=== PATIENT | male | born 1945 | race Caucasian/White ===

== ENCOUNTER 2023-12-19 11:45 | Inpatient (IN) | payer MEDICARE ==
[~2023-12-19] VITALS: Ht 167.6 cm; Wt 76.5 kg
[~2023-12-19 11:45] MED LIST: ASPI1CPM21 PO; BREX1TAB PO; FOLI-130 PO; LOSA-382 PO; MELA5TAB40 PO; METF-1211 PO; MULT-248 PO; OMEG-135 PO; ROSU10TA72 PO; TAMS0.4C94 PO; THIA100T80 PO
[2023-12-19 12:34] LABS: BASOPHILS % (AUTO) 0.5 % (0.0-2.0); EOSINOPHILS % (AUTO) 2.9 % (1.0-6.0); LYMPHOCYTES # (AUTO) 1.5 K/uL (1.0-4.8); LYMPHOCYTES % (AUTO) 31.2 % (22.0-44.0); MEAN CORPUSCULAR HEMOGLOBIN 33.1 pg (26.0-34.0); MEAN CORPUSCULAR HGB CONC 33.4 G/dL (31.0-37.0); MEAN CORPUSCULAR VOLUME 99 fL (80-100); MONOCYTES # (AUTO) 0.5 K/uL (0.1-1.0); MONOCYTES % (AUTO) 9.8 % (2.0-9.0); NEUTROPHILS # (AUTO) 2.7 K/uL (1.8-7.7); NEUTROPHILS % (AUTO) 55.6 % (40.0-70.0); PLATELET COUNT (AUTO) 289 K/uL (150-450); RED BLOOD CELL COUNT(AUTO) 3.63 MIL/uL (4.50-5.90); RED CELL DISTRIBUTION WIDTH 13.9 % (11.5-14.5); WHITE BLOOD COUNT (AUTO) 4.8 K/uL (4.5-11.0)
[2023-12-19 12:46] LABS: ALCOHOL, BLOOD (SERUM) < 3 mg/dL (0-10)
[2023-12-19 12:47] LABS: ANION GAP 8 mmol/L (8-16); CALCIUM, TOTAL 9.3 mg/dL (8.8-10.5); CARBON DIOXIDE 26 mmol/L (22-29); CHLORIDE 104 mmol/L (98-107); CREATININE 0.81 mg/dL (0.60-1.30); GLOMERULAR FILTR. RATE CALC > 60 mL/min (>60); GLUCOSE,RANDOM 123 mg/dL (70-110); POTASSIUM 4.1 mmol/L (3.5-5.1); SODIUM SERUM 138 mmol/L (136-145); UREA NITROGEN, BLOOD 13 mg/dL (7-18)
[2023-12-19 12:53] LABS: ALANINE AMINOTRANSFERASE 24 U/L (12-78); ALBUMIN 3.1 g/dL (3.4-5.0); ALKALINE PHOSPHATASE 52 U/L (46-116); ASPARTATE AMINOTRANSFERASE 19 U/L (15-37); BILIRUBIN,TOTAL 0.8 mg/dL (0.1-1.0); TOTAL PROTEIN, SERUM 6.4 g/dL (6.4-8.2)
[2023-12-19 13:24] LABS: COVID AG,FIA SOURCE NASAL SWAB
[2023-12-19 13:43] LABS: SARS-COV2 (COVID) ANTIGEN,FIA Negative (Negative)
[2023-12-19] MEDS ORDERED: PROMETHAZINE HCL 25 MG TABLET PO PRN (15:00)
[2023-12-19] MEDS ORDERED: LOPERAMIDE HCL 2 MG CAPSULE PO PRN (15:00)
[2023-12-19] MEDS: DiphenhydrAMINE HCL 50 MG/ML VIAL IM ONE (15:00)
[2023-12-19] MEDS ORDERED: BREXPIPRAZOLE 1 MG TABLET PO PRN (15:00)
[2023-12-19] MEDS: HALOPERIDOL LACTATE 5 MG/ML VIAL IM ONE (15:00)
[2023-12-19] MEDS ORDERED: GuaiFENesin/D-METHORPHAN [SUGAR-FREE] 200-20MG/10 ML SYRUP UDCUP PO PRN (15:00)
[2023-12-19] MEDS: LORazepam 2 MG/ML VIAL IM ONE (15:00)
[2023-12-19] MEDS ORDERED: OLANZapine 5 MG RAPDIS TABLET PO PRN (15:00)
[2023-12-19] MEDS ORDERED: MAGNESIUM HYDROXIDE SUSPENSION 30 ML UDCUP PO PRN (15:00)
[2023-12-19] MEDS ORDERED: HydrOXYzine PAMOATE 50 MG CAPSULE PO PRN (15:00)
[2023-12-19 16:42] LABS: GLUCOMETER DEV NAME(LOC) ERT.5; GLUCOSE,POINT OF CARE 146 MG/DL (70-110)
[2023-12-19] MEDS: THIAMINE 100 MG TABLET PO SCH (17:00)
[2023-12-19] MEDS: BREXPIPRAZOLE 1 MG TABLET PO SCH (17:00)
[2023-12-19] MEDS: DIVALPROEX SODIUM 250 MG ER TABLET PO SCH (21:00)
[2023-12-19] MEDS: MELATONIN 5 MG TABLET PO SCH (21:00)
[2023-12-19 23:08] VITALS: BP 106/64; PULSE 63; RESP 18; TEMP 97.8; O2SAT 97
[2023-12-20] MEDS: MetFORMIN HCL 500 MG TABLET PO SCH (07:30)
[2023-12-20 07:36] LABS: ALANINE AMINOTRANSFERASE 28 U/L (12-78); ALBUMIN 2.9 g/dL (3.4-5.0); ALKALINE PHOSPHATASE 55 U/L (46-116); ANION GAP 8 mmol/L (8-16); ASPARTATE AMINOTRANSFERASE 22 U/L (15-37); BILIRUBIN,TOTAL 0.7 mg/dL (0.1-1.0); CALCIUM, TOTAL 8.9 mg/dL (8.8-10.5); CARBON DIOXIDE 27 mmol/L (22-29); CHLORIDE 105 mmol/L (98-107); CREATININE 0.86 mg/dL (0.60-1.30); GLOMERULAR FILTR. RATE CALC > 60 mL/min (>60); GLUCOSE,RANDOM 121 mg/dL (70-110); POTASSIUM 4.4 mmol/L (3.5-5.1); SODIUM SERUM 140 mmol/L (136-145); TOTAL PROTEIN, SERUM 5.8 g/dL (6.4-8.2); UREA NITROGEN, BLOOD 17 mg/dL (7-18)
[2023-12-20] MEDS: MULTIVITAMINS WITH MINERALS, THERAPEUTIC TABLET PO SCH ×2 (08:54→08:55)
[2023-12-20] MEDS: FOLIC ACID 1 MG TABLET PO SCH ×2 (08:54→08:55)
[2023-12-20] MEDS: THIAMINE 100 MG TABLET PO SCH (08:55)
[2023-12-20] MEDS: ASPIRIN/DIPYRIDAMOLE ER 25/200 MG ER CAPSULE PO SCH (08:59)
[2023-12-20] MEDS: OMEGA-3/DHA/EPA/FISH OIL 1,000 MG CAPSULE PO SCH (08:59)
[2023-12-20] MEDS: LOSARTAN POTASSIUM 50 MG TABLET PO SCH (09:00)
[2023-12-20 14:50] VITALS: BP 112/75; PULSE 90; RESP 19; TEMP 97.7; O2SAT 98
[2023-12-20 18:16] VITALS: BP 136/76; PULSE 87; RESP 18; TEMP 97; O2SAT 98
[2023-12-20] MEDS: ACETAMINOPHEN 325 MG TABLET PO PRN (18:16)
[2023-12-20] MEDS: TAMSULOSIN HCL 0.4 MG CAPSULE PO SCH (21:00)
[2023-12-20] MEDS: ROSUVASTATIN CALCIUM 10 MG TABLET PO SCH (21:00)
[2023-12-20 22:55] VITALS: BP 96/60; PULSE 67; RESP 18; TEMP 97.5; O2SAT 98
[2023-12-21 00:33] LABS: APPEARANCE,URINE CLEAR (CLEAR); BILIRUBIN,URINE NEGATIVE (NEGATIVE); COLOR,URINE LIGHT YELLOW (YELLOW); GLUCOSE, URINE (UA) NEGATIVE (NEGATIVE); KETONES,URINE NEGATIVE (NEGATIVE); LEUKOCYTE ESTERASE ,URINE NEGATIVE (NEGATIVE); NITRATE,URINE NEGATIVE (NEGATIVE); OCCULT BLOOD,URINE NEGATIVE (NEGATIVE); PROTEIN,URINE NEGATIVE (NEGATIVE); SPECIFIC GRAVITIY, URINE 1.014 (1.003-1.030); UROBILINOGEN,URINE <=1.0 mg/dL (<=1.0)
[2023-12-21 00:39] LABS: ALCOHOL, URINE DRUG SCREEN NEGATIVE (NEGATIVE); AMPHET/METH SCREEN,URINE NEGATIVE (NEGATIVE); BARBITURATE SCREEN, URINE NEGATIVE (NEGATIVE); BENZODIAZEPINES SCREEN,URINE NEGATIVE (NEGATIVE); CANNABINOID SCREEN,URINE NEGATIVE (NEGATIVE); COCAINE SCREEN,URINE NEGATIVE (NEGATIVE); METHADONE SCREEN, URINE NEGATIVE (NEGATIVE); OPIATE SCREEN,URINE NEGATIVE (NEGATIVE); PHENCYCLIDINE SCREEN,URINE NEGATIVE (NEGATIVE)
[2023-12-21 00:48] LABS: BACTERIA,URINE None Seen /HPF (None Seen); RBC,URINE None Seen /HPF (0-2); SQUAMOUS EPITHELIAL CELL,UR Few /LPF (None Seen); WBC,URINE None Seen /HPF (0-5)
[2023-12-21 08:17] VITALS: BP 122/64; PULSE 87; RESP 17; TEMP 98.1; O2SAT 96
[2023-12-21] MEDS: LORazepam 2 MG/ML VIAL IM ONE (17:08)
[2023-12-21] MEDS: DiphenhydrAMINE HCL 50 MG/ML VIAL IM ONE (17:09)
[2023-12-21] MEDS: HALOPERIDOL LACTATE 5 MG/ML VIAL IM ONE (17:09)
[2023-12-22 08:15] VITALS: BP 116/70; PULSE 84; RESP 18; TEMP 98; O2SAT 95
[2023-12-22 20:42] VITALS: O2SAT 18
[2023-12-23 08:52] VITALS: BP 105/67; PULSE 98; RESP 18; TEMP 98.4; O2SAT 98
[2023-12-23] MEDS ORDERED: DEXTROSE 50%-WATER 25 GM/50 ML SYRINGE IVP PRN (11:00)
[2023-12-23 17:11] LABS: GLUCOMETER DEV NAME(LOC) 3EX.2; GLUCOSE,POINT OF CARE 113 MG/DL (70-110)
[2023-12-23] MEDS: INSULIN LISPRO 100 UNITS/ML SQ PRN (17:24)
[2023-12-23 22:57] VITALS: BP 129/76; PULSE 87; RESP 18; TEMP 97.2; O2SAT 97
[2023-12-23] MEDS: DiphenhydrAMINE HCL 50 MG/ML VIAL IM ONE (23:35)
[2023-12-23] MEDS: HALOPERIDOL LACTATE 5 MG/ML VIAL IM ONE (23:38)
[2023-12-23] MEDS: LORazepam 2 MG/ML VIAL IM ONE (23:39)
[2023-12-24 07:02] LABS: GLUCOMETER DEV NAME(LOC) 3EX.2; GLUCOSE,POINT OF CARE 98 MG/DL (70-110)
[2023-12-24 12:42] VITALS: RESP 18
[2023-12-24 16:56] LABS: GLUCOMETER DEV NAME(LOC) 3EX.2; GLUCOSE,POINT OF CARE 120 MG/DL (70-110)
[2023-12-24 20:05] VITALS: BP 117/77; PULSE 74; RESP 18; TEMP 97.3; O2SAT 97
[2023-12-25 08:04] VITALS: BP 106/60; PULSE 83; RESP 18; TEMP 98.2; O2SAT 95
[2023-12-25 08:26] LABS: CHOL/HDL RATIO 2.8 (4.2-7.3); THYROID STIMULATING HORMONE 1.7 uIU/mL (0.36-3.74)
[2023-12-25 11:36] LABS: GLUCOMETER DEV NAME(LOC) 3EX.2; GLUCOSE,POINT OF CARE 141 MG/DL (70-110)
[2023-12-25 20:40] VITALS: BP 111/79; PULSE 79; RESP 18; TEMP 97.9; O2SAT 99
[2023-12-26 06:32] LABS: GLUCOMETER DEV NAME(LOC) 3EX.2; GLUCOSE,POINT OF CARE 101 MG/DL (70-110)
[2023-12-26 08:04] VITALS: BP 103/63; PULSE 73; RESP 18; TEMP 98; O2SAT 99
[2023-12-26] MEDS ORDERED: OLANZapine 5 MG RAPDIS TABLET PO PRN (11:30)
[2023-12-26] MEDS: OLANZapine 10 MG RAPDIS TABLET PO SCH (20:33)
[2023-12-27] MEDS ORDERED: LORazepam 2 MG/ML VIAL ONE (08:31)
[2023-12-27] MEDS ORDERED: DiphenhydrAMINE HCL 50 MG/ML VIAL ONE (08:31)
[2023-12-27] MEDS ORDERED: HALOPERIDOL LACTATE 5 MG/ML VIAL ONE (08:31)
[2023-12-27] MEDS: LORazepam 2 MG/ML VIAL IM ONE (08:40)
[2023-12-27] MEDS: HALOPERIDOL LACTATE 5 MG/ML VIAL IM ONE (08:40)
[2023-12-27] MEDS: DiphenhydrAMINE HCL 50 MG/ML VIAL IM ONE (08:40)
[2023-12-27 08:58] VITALS: BP 106/67; PULSE 99; RESP 19; TEMP 98.1; O2SAT 96
[2023-12-27] MEDS: DIVALPROEX SODIUM 250 MG ER TABLET PO SCH (09:00)
[2023-12-27] MEDS: OLANZapine 10 MG RAPDIS TABLET PO SCH (09:00)
[2023-12-27 17:02] LABS: GLUCOMETER DEV NAME(LOC) 3EX.2; GLUCOSE,POINT OF CARE 85 MG/DL (70-110)
[2023-12-27 19:32] VITALS: BP 117/68; PULSE 98; RESP 18; TEMP 97.9; O2SAT 95
[2023-12-27 20:10] VITALS: BP 117/68; PULSE 98; RESP 18; TEMP 97.9; O2SAT 95
[2023-12-28 02:40] VITALS: BP 117/73; PULSE 90; RESP 18; TEMP 98.1; O2SAT 96
[2023-12-28 06:23] LABS: GLUCOMETER DEV NAME(LOC) 3EX.2; GLUCOSE,POINT OF CARE 102 MG/DL (70-110)
[2023-12-28] MEDS: LORazepam 1 MG TABLET PO PRN (09:15)
[2023-12-28 09:50] VITALS: BP 118/77; PULSE 97; RESP 18; TEMP 97.6; O2SAT 86
[2023-12-28 22:34] VITALS: BP 109/72; PULSE 105; RESP 18; TEMP 98.5; O2SAT 96
[2023-12-29 06:48] LABS: GLUCOMETER DEV NAME(LOC) 3EX.2; GLUCOSE,POINT OF CARE 105 MG/DL (70-110)
[2023-12-29 08:10] VITALS: BP 103/69; PULSE 86; RESP 17; TEMP 97.7; O2SAT 9
[2023-12-29 16:36] LABS: GLUCOMETER DEV NAME(LOC) 3EX.2; GLUCOSE,POINT OF CARE 177 MG/DL (70-110)
[2023-12-29 20:21] VITALS: BP 102/68; PULSE 88; RESP 18; TEMP 98.7; O2SAT 95
[2023-12-30] MEDS: MetFORMIN HCL 500 MG TABLET PO SCH (08:07)
[2023-12-30] MEDS: LOSARTAN POTASSIUM 25 MG TABLET PO SCH (08:13)
[2023-12-30 08:14] VITALS: BP 106/69; PULSE 92; RESP 16; TEMP 98.2; O2SAT 99
[2023-12-30 20:03] VITALS: BP 109/77; PULSE 86; RESP 18; TEMP 97.3; O2SAT 98
[2023-12-31 06:37] LABS: GLUCOMETER DEV NAME(LOC) 3EX.2; GLUCOSE,POINT OF CARE 89 MG/DL (70-110)
[2023-12-31 08:05] VITALS: BP 109/72; PULSE 78; RESP 17; TEMP 98.7; O2SAT 97
[2023-12-31 17:36] LABS: GLUCOMETER DEV NAME(LOC) 3EX.2; GLUCOSE,POINT OF CARE 95 MG/DL (70-110)
[2023-12-31] MEDS: HALOPERIDOL LACTATE 10 MG/5 ML SOLUTION UDCUP PO PRN (18:27)
[2023-12-31 20:36] VITALS: RESP 18
[2024-01-01 06:25] LABS: GLUCOMETER DEV NAME(LOC) 3EX.2; GLUCOSE,POINT OF CARE 88 MG/DL (70-110)
[2024-01-01 08:11] VITALS: RESP 19; O2SAT 98
[2024-01-01] MEDS: VALPROIC ACID 250 MG/5 ML SOLUTION UDCUP PO SCH (08:45)
[2024-01-01] MEDS: HALOPERIDOL LACTATE 10 MG/5 ML SOLUTION UDCUP PO SCH (08:46)
[2024-01-01 17:36] LABS: GLUCOMETER DEV NAME(LOC) 3EX.2; GLUCOSE,POINT OF CARE 101 MG/DL (70-110)
[2024-01-01 21:02] VITALS: RESP 18
[2024-01-01] MEDS: ZOLPIDEM TARTRATE 10 MG TABLET PO PRN (22:02)
[2024-01-02 06:16] LABS: GLUCOMETER DEV NAME(LOC) 3EX.2; GLUCOSE,POINT OF CARE 86 MG/DL (70-110)
[2024-01-02 08:27] VITALS: BP 102/60; PULSE 94; RESP 18; TEMP 97.5; O2SAT 96
[2024-01-02 17:35] LABS: GLUCOMETER DEV NAME(LOC) 3EX.2; GLUCOSE,POINT OF CARE 90 MG/DL (70-110)
[2024-01-02 20:18] VITALS: BP 109/65; PULSE 97; RESP 18; TEMP 98.2; O2SAT 96
[2024-01-02] MEDS: MAG HYDROX/ALUMINUM HYD/SIMETH ES 30 ML SUSPENSION UDCUP PO PRN (23:02)
[2024-01-03 06:51] LABS: GLUCOMETER DEV NAME(LOC) 3EX.2; GLUCOSE,POINT OF CARE 84 MG/DL (70-110)
[2024-01-03 08:00] VITALS: BP 114/54; PULSE 96; RESP 18; TEMP 98; O2SAT 98
[2024-01-03 17:46] LABS: GLUCOMETER DEV NAME(LOC) 3EX.2; GLUCOSE,POINT OF CARE 102 MG/DL (70-110)
[2024-01-03 20:47] VITALS: RESP 18
[2024-01-04 06:55] LABS: GLUCOMETER DEV NAME(LOC) 3EX.2; GLUCOSE,POINT OF CARE 79 MG/DL (70-110)
[2024-01-04 08:52] VITALS: BP 133/87; PULSE 94; RESP 18; TEMP 98.6; O2SAT 97
[2024-01-04 16:55] LABS: GLUCOMETER DEV NAME(LOC) 3EX.2; GLUCOSE,POINT OF CARE 113 MG/DL (70-110)
[2024-01-04 20:20] VITALS: TEMP 98.1
[2024-01-05 06:40] LABS: GLUCOMETER DEV NAME(LOC) 3EX.2; GLUCOSE,POINT OF CARE 90 MG/DL (70-110)
[2024-01-05 08:47] VITALS: BP 140/75; PULSE 78; RESP 18; TEMP 98; O2SAT 96
[2024-01-05 20:13] VITALS: BP 135/82; PULSE 72; RESP 18; TEMP 97.3; O2SAT 98
[2024-01-06 08:17] VITALS: BP 114/75; PULSE 75; RESP 18; TEMP 98; O2SAT 97
[2024-01-06] MEDS ORDERED: HALO2ORA11 PO (18:18)
[2024-01-06] MEDS ORDERED: VALP250S23 PO (18:18)
[2024-01-06 20:04] VITALS: BP 134/86; PULSE 87; RESP 17; TEMP 98.1; O2SAT 97
[2024-01-07 13:00] VITALS: BP 110/74; PULSE 97; RESP 18; TEMP 98; O2SAT 98
== END 2024-01-07 13:28 | DRG 885 ==
LOC: EMS 12:57 → 3EX 15:17 → 3EC 12-21 17:53
PROVIDERS: ADMIT Psychiatry & Neurology Psychiatry; ATTEND Psychiatry & Neurology Psychiatry
PROC: GZHZZZZ Group Psychotherapy (ICD-10-PCS; principal; 2024-01-07)
PROC: GZ51ZZZ Individual Psychotherapy, Behavioral (ICD-10-PCS; 2024-01-07)
DX: F25.9 Schizoaffective disorder, unspecified (principal); E46 Unspecified protein-calorie malnutrition; E11.8 Type 2 diabetes mellitus with unspecified complications; D64.9 Anemia, unspecified; Z20.822 Contact with and (suspected) exposure to COVID-19; I10 Essential (primary) hypertension; E11.9 Type 2 diabetes mellitus without complications; E78.00 Pure hypercholesterolemia, unspecified; F94.0 Selective mutism; Z74.01 Bed confinement status; Z85.46 Personal history of malignant neoplasm of prostate; Z86.73 Personal history of transient ischemic attack (TIA), and cerebral infarction without residual deficits; Z91.148 Patient's other noncompliance with medication regimen for other reason; Z68.27 Body mass index [BMI] 27.0-27.9, adult
CPT/HCPCS: 80053; 80061; 80164; 80307; 81001; 82962; 83036; 84443; 85025; 87081; 99285; G0378; G0480; J1200; J1630; J2060; Q9967